=== PATIENT | male | born 1960 | race African-American/Black ===

== ENCOUNTER 2017-03-24 10:38 | Emergency (ER) | payer MEDICAID ==
[~2017-03-24] VITALS: Ht 175.3 cm; Wt 100.0 kg
[2017-03-24 10:40] VITALS: BP 140/90
== END 2017-03-24 12:20 | disposition left against medical advice (07) ==
LOC: ER 11:19
DX: Z53.21 Procedure and treatment not carried out due to patient leaving prior to being seen by health care provider (principal)